=== PATIENT | female | born 1980 | race Caucasian/White ===

== ENCOUNTER 2022-09-12 17:26 | Emergency (ER) | payer SELFPAY ==
[~2022-09-12] VITALS: Ht 167 cm; Wt 65.0 kg
--- NOTE | 2022-09-12 17:38 | ED Psychosocial ---
General Chief Complaint: Psych/Social Disorder Stated Complaint: ANXIETY Nursing Triage Note: PT ARRIVES TO ER VIA EMS. PT REPORTS RAN OUT OF HER EFFEXOR THIS PAST SUNDAY, RAN OUT OF HER WELLBUTRIN 3 WEEKS AGO, ALMOST OUT OF HER TRAZODONE. PT C/O CRYING, ANXIETY, AND PANIC ATTACKS SINCS SUNDAY. PT HAS AN APPT WITH A NEW PCP NEXT SUN. Source: patient Exam Limitations: no limitations History of Present Illness Date Seen by Provider: September 12, 2022 Time Seen by Provider: 17:25 Initial Comments 42-year-old female presents to the ED via EMS for panic attack. She states that she recently moved back here, and has been out of her Effexor and Wellbutrin. She does not have as needed medications for anxiety. She reports midsternal chest pain that started yesterday morning, states it has been constant since it started. Also reports occasional shortness of air. Reports the symptoms are usual for her panic attacks. Denies fevers, abdominal pain, diarrhea, vomiting. Does report some nausea. Patient denies any suicidal or homicidal ideation. Allergies and Home Medications Allergies Coded Allergies: No Known Drug Allergies (Unverified , 09/12/22) Patient Home Medication List Home Medication List Reviewed: Yes Bupropion HCl (Wellbutrin Xl) 150 Mg Tab.er.24h, 150 MG PO DAILY Prescribed by: Jeanne Blackburn on 09/12/221929 Trazodone HCl (Trazodone HCl) 50 Mg Tablet, 50 MG PO HS Prescribed by: Jeanne Blackburn on 09/12/221929 Venlafaxine HCl (Effexor Xr) 150 Mg Cap.er.24h, 150 MG PO DAILY Prescribed by: Jeanne Blackburn on 09/12/221929 Review of Systems Constitutional: see HPI Past Rxpjlzr-Vglydj-Kmwhwy Hx Patient Social History Tobacco Use?: Yes Tobacco type used: Cigarettes Smoking Status: Current Everyday Smoker Use of E-Cig and/or Vaping dev: No Substance use?: Yes Substance type: Marijuana Alcohol Use?: No Pt feels they are or have been: No Immunizations Up To Date First/Initial COVID19 Vaccinat: RECEIVED, UNK WHEN Second COVID19 Vaccination Solitario: RECEIVED, UNK WHEN COVID19 Vaccine Agricultural Inspector: MEKA Physical Exam Vital Signs - First Documented 09/12/22 17:26 Temp 35.0 Pulse 86 Resp 18 B/P (MAP) 142/91 (108) Pulse Ox 98 O2 Delivery Room Air Capillary Refill : Height, Weight, BMI Height: '" Weight: lbs. oz. kg; 23.00 BMI Method: General Appearance: WD/WN, mild distress Neck: supple, normal inspection Respiratory: lungs clear, normal breath sounds, no respiratory distress, no accessory muscle use Cardiovascular: regular rate, rhythm Extremities: normal range of motion, normal inspection Neurologic/Psychiatric: alert, normal mood/affect Skin: normal color, warm/dry Progress/Results/Core Measures Results/Orders Lab Results Laboratory Tests Test 09/12/22 18:01 Range/Units White Blood Count 10.9 4.3-11.0 10^3/uL Red Blood Count 5.01 3.80-5.11 10^6/uL Hemoglobin 15.2 11.5-16.0 g/dL Hematocrit 45 35-52 % Mean Corpuscular Volume 91 80-99 fL Mean Corpuscular Hemoglobin 30 25-34 pg Mean Corpuscular Hemoglobin Concent 34 32-36 g/dL Red Cell Distribution Width 12.8 10.0-14.5 % Platelet Count 322 130-400 10^3/uL Mean Platelet Volume 9.5 9.0-12.2 fL Immature Granulocyte % (Auto) 1 % Neutrophils (%) (Auto) 63 42-75 % Lymphocytes (%) (Auto) 28 12-44 % Monocytes (%) (Auto) 6 0-12 % Eosinophils (%) (Auto) 1 0-10 % Basophils (%) (Auto) 1 0-10 % Neutrophils # (Auto) 6.9 1.8-7.8 10^3/uL Lymphocytes # (Auto) 3.0 1.0-4.0 10^3/uL Monocytes # (Auto) 0.7 0.0-1.0 10^3/uL Eosinophils # (Auto) 0.1 0.0-0.3 10^3/uL Basophils # (Auto) 0.1 0.0-0.1 10^3/uL Immature Granulocyte # (Auto) 0.1 0.0-0.1 10^3/uL Prothrombin Time 11.7 L 12.2-14.7 SEC INR Comment 0.8 0.8-1.4 Activated Partial Thromboplast Time 30 24-35 SEC Sodium Level 140 135-145 MMOL/L Potassium Level 4.0 3.6-5.0 MMOL/L Chloride Level 106 98-107 MMOL/L Carbon Dioxide Level 21 21-32 MMOL/L Anion Gap 13 5-14 MMOL/L Blood Urea Nitrogen 12 7-18 MG/DL Creatinine 0.76 0.60-1.30 MG/DL Estimat Glomerular Filtration Rate 99 BUN/Creatinine Ratio 16 Glucose Level 101 70-105 MG/DL Calcium Level 10.1 8.5-10.1 MG/DL Corrected Calcium 9.7 8.5-10.1 MG/DL Magnesium Level 1.9 1.6-2.4 MG/DL Total Bilirubin 0.4 0.1-1.0 MG/DL Aspartate Amino Transf (AST/SGOT) 21 5-34 U/L Alanine Aminotransferase (ALT/SGPT) 21 0-55 U/L Alkaline Phosphatase 88 40-136 U/L Troponin I < 0.028 <0.028 NG/ML Total Protein 8.2 6.4-8.2 GM/DL Albumin 4.5 3.2-4.5 GM/DL My Orders Orders - JEANNE BLACKBURN GREEN MARKETER Cbc With Automated Diff (09/12/22 17:33) Magnesium (09/12/22 17:33) Chest 1 View, Ap/Pa Only (09/12/22 17:33) Ekg Tracing (09/12/22 17:33) Comprehensive Metabolic Panel (09/12/22 17:33) Protime With Inr (09/12/22 17:33) Partial Thromboplastin Time (09/12/22 17:33) Ed Iv/Invasive Line Start (09/12/22 17:33) Troponin I [place] (09/12/22 17:33) Lorazepam Tablet (Ativan Tablet) (09/12/22 17:45) Medications Given in ED Current Medications Medications Dose Ordered Sig/Leslie Route Start Time Stop Time Status Last Admin Dose Admin Lorazepam 0.5 mg ONCE ONCE PO 09/12/22 17:45 09/12/22 17:46 DC 09/12/22 17:40 0.5 MG Vital Signs/I&O 09/12/22 17:26 Temp 35.0 Pulse 86 Resp 18 B/P (MAP) 142/91 (108) Pulse Ox 98 O2 Delivery Room Air Blood Pressure Mean: 108 Progress Progress Note : Progress Note Patient seen and evaluated, sitting on bed, moderately anxious. Based on exam and symptoms, work-up initiated including CBC, CMP, magnesium, troponin, EKG, chest x-ray, coags. Oral Ativan ordered. Initial ECG Impression Date: September 12, 2022 Initial ECG Impression Time: 17:49 Initial ECG Rate: 76 Initial ECG Rhythm: Normal Sinus Initial ECG Intervals: Normal Initial ECG Impression: Normal Initial ECG Comparisson: No Previous ECG Available Departure Impression Primary Impression: Anxiety Disposition: HOME, SELF-CARE Condition: Stable Departure-Patient Inst. Decision time for Depature: 19:21 Referrals: NO,LOCAL PHYSICIAN (PCP/Family) Primary Care Physician Patient Instructions: Anxiety, Adult (DC) Add. Discharge Instructions: Follow-up with [facility] as scheduled next week. You may go to the [facility] walk-in clinic if you need assistance prior to your appointment. Return for any suicidal or homicidal thoughts, or any other new, concerning, or worsening symptoms. All discharge instructions reviewed with patient and/or family. Voiced understanding. Scripts Trazodone HCl (Trazodone HCl) 50 Mg Tablet 50 MG PO HS for 30 Days, #30 TAB 0 Refills Prov: JEANNE BLACKBURN APRN 09/12/22 Bupropion HCl (Wellbutrin Xl) 150 Mg Tab.er.24h 150 MG PO DAILY for 30 Days, #30 TAB 0 Refills Prov: JEANNE BLACKBURN APRN 09/12/22 Venlafaxine HCl (Effexor Xr) 150 Mg Cap.er.24h 150 MG PO DAILY for 30 Days, #30 CAP 0 Refills Prov: JEANNE BLACKBURN APRN 09/12/22 JEANNE BLACKBURN APRN September 12, 2022 17:38
[2022-09-12] MEDS ORDERED: LORazepam 0.5 MG (ATIVAN) TABLET PO ONE (17:45)
[2022-09-12 18:09] LABS: BASOPHILS # (AUTO) 0.1 10^3/uL (0.0-0.1); BASOPHILS % (AUTO) 1 % (0-10); EOSINOPHILS # (AUTO) 0.1 10^3/uL (0.0-0.3); EOSINOPHILS % (AUTO) 1 % (0-10); HEMATOCRIT 45 % (35-52); HEMOGLOBIN 15.2 g/dL (11.5-16.0); LYMPHOCYTES % (AUTO) 28 % (12-44); MEAN CORPUSCULAR HEMOGLOBIN 30 pg (25-34); MEAN CORPUSCULAR HGB CONC 34 g/dL (32-36); MEAN CORPUSCULAR VOLUME 91 fL (80-99); MEAN PLATELET VOLUME 9.5 fL (9.0-12.2); MONOCYTES # (AUTO) 0.7 10^3/uL (0.0-1.0); MONOCYTES % (AUTO) 6 % (0-12); NEUTROPHILS # (AUTO) 6.9 10^3/uL (1.8-7.8); NEUTROPHILS % (AUTO) 63 % (42-75); PLATELET COUNT 322 10^3/uL (130-400); WHITE BLOOD COUNT 10.9 10^3/uL (4.3-11.0)
[2022-09-12 18:20] LABS: ALBUMIN 4.5 GM/DL (3.2-4.5); INR 0.8 (0.8-1.4); PROTHROMBIN TIME PATIENT 11.7 SEC (12.2-14.7)
[2022-09-12 18:22] LABS: CALCIUM 10.1 MG/DL (8.5-10.1)
[2022-09-12 18:23] LABS: TOTAL PROTEIN 8.2 GM/DL (6.4-8.2)
[2022-09-12 18:25] LABS: BILIRUBIN,TOTAL 0.4 MG/DL (0.1-1.0)
[2022-09-12 18:27] LABS: CREATININE SERUM 0.76 MG/DL (0.60-1.30)
[2022-09-12 18:30] LABS: MAGNESIUM 1.9 MG/DL (1.6-2.4)
--- NOTE | 2022-09-12 19:16 | Diagnostic Imaging Report ---
EXAMINATION: Chest 1 view HISTORY: Chest pain. COMPARISON: None available. FINDINGS: The lung volumes are normal. No focal consolidation is seen. No large pleural effusion or pneumothorax is seen. The cardiomediastinal silhouette is normal in size and contour. No acute osseous abnormality is seen. IMPRESSION: 1. No acute pleuroparenchymal process. Dictated by: Dictated on workstation # [id number]
[2022-09-12] MEDS ORDERED: VENL150C3 PO (19:30)
[2022-09-12] MEDS ORDERED: BUPR-42 PO (19:30)
[2022-09-12] MEDS ORDERED: TRZ50T PO (19:30)
[2022-09-12 19:38] VITALS: BP 131/87
== END 2022-09-12 19:39 | disposition home or self-care (01) ==
LOC: EDUNIT# 17:26 → ER 17:27
DX: F41.9 Anxiety disorder, unspecified (principal); F17.210 Nicotine dependence, cigarettes, uncomplicated; Z79.899 Other long term (current) drug therapy
CPT/HCPCS: 36415; 71045; 80053; 83735; 84484; 85025; 85610; 85730; 93005

== ENCOUNTER 2022-09-26 14:16 | Emergency (ER) | payer SELFPAY ==
[~2022-09-26] VITALS: Ht 167.7 cm; Wt 66.0 kg
[~2022-09-26 14:16] MED LIST: BUPR-42 PO; TRZ50T PO; VENL150C3 PO
[2022-09-26] MEDS ORDERED: CYCL10TA25 PO (14:52)
[2022-09-26] MEDS ORDERED: KETO10TA PO (14:52)
--- NOTE | 2022-09-26 14:52 | ED Back Pain ---
General Chief Complaint: Back Problems Stated Complaint: BACK PAIN Nursing Triage Note: PT AMB TO ED BY POV WITH C/O NECK AND BACK PAIN. PT REPORTS LOWER NECK, MID BACK, AND LOWER BACK PAIN X 4 DAYS, DENIES INJURY. Source of Information: Patient Exam Limitations: No Limitations History of Present Illness Date Seen by Provider: September 26, 2022 Time Seen by Provider: 14:48 Initial Comments Patient is a 42-year-old female who presents to the ED for neck pain, middle lower back pain. Pain started 4 days ago. Described as a dull burning pain. Worse with movement or while sitting. She states she recently started doing abdominal exercises which may be contributing to her pain. She denies any falls. Pain radiates outward from the mid to lower back. She states she had a episode of pain shooting down the left leg. She denies of any bowel or urine incontinence, saddle paresthesia, lower extremity weakness. Family history of degenerative disc disease. She denies history of osteoporosis, drug use, fever, chills, abdominal pain, chest pain, shortness of breath or cough. She has been taken ibuprofen without much improvement. She is requesting something for pain. She states she feels a knot to her mid back. Patient denies dysuria, hematuria, vaginal bleeding, vaginal discharge Allergies and Home Medications Allergies Coded Allergies: No Known Drug Allergies (Unverified , 09/12/22) Patient Home Medication List Home Medication List Reviewed: Yes Bupropion HCl (Wellbutrin Xl) 150 Mg Tab.er.24h, 150 MG PO DAILY Prescribed by: Jeanne Blackburn on 09/12/221929 Cyclobenzaprine HCl (Cyclobenzaprine HCl) 10 Mg Tablet, 10 MG PO TID Prescribed by: ROSENDO CUVEAS on 09/26/22 145 Ketorolac Tromethamine (Ketorolac Tromethamine) 10 Mg Tablet, 10 MG PO TID Prescribed by: ROSENDO CUEVAS on 09/26/22 145 Trazodone HCl (Trazodone HCl) 50 Mg Tablet, 50 MG PO HS Prescribed by: Jeanne Blackburn on 09/12/221929 Venlafaxine HCl (Effexor Xr) 150 Mg Cap.er.24h, 150 MG PO DAILY Prescribed by: Jeanne Blackburn on 09/12/221929 Review of Systems Constitutional: No chills, No diaphoresis, No malaise, No weakness EENTM: No hearing loss, No blurred vision, No double vision Respiratory: No cough, No dyspnea on exertion Cardiovascular: No chest pain Gastrointestinal: No abdominal pain, No nausea, No vomiting Genitourinary: No decreased output, No discharge Musculoskeletal: back pain, joint pain, muscle pain, muscle stiffness Skin: No change in color, No change in hair/nails All Other Systems Reviewed Negative Unless Noted: Yes Past Xhmlpzm-Lbndwx-Ktncck Hx Patient Social History Tobacco Use?: Yes Tobacco type used: Cigarettes Smoking Status: Current Everyday Smoker Use of E-Cig and/or Vaping dev: No Substance use?: Yes Substance type: Marijuana Substance frequency: Couple times a week Alcohol Use?: No Pt feels they are or have been: No Immunizations Up To Date Influenza Vaccine Up-to-Date: No; Not Current First/Initial COVID19 Vaccinat: X2 Second COVID19 Vaccination Solitario: X2 Past Medical History Surgery/Hospitalization HX: ANXIETY, DEPRESSION, RA Physical Exam Vital Signs Vital Signs - First Documented 09/26/22 14:30 Temp 37.0 Pulse 70 Resp 16 B/P (MAP) 116/75 (89) Pulse Ox 98 O2 Delivery Room Air Capillary Refill : Less Than 3 Seconds Height, Weight, BMI Height: '" Weight: lbs. oz. kg; 23.00 BMI Method: General Appearance: No Apparent Distress, WD/WN HEENT: PERRL/EOMI, TMs Normal, Normal ENT Inspection, Pharynx Normal Neck: Full Range of Motion, Normal Inspection, Non Tender, Supple Cardiovascular: Regular Rate, Rhythm, No Edema, No Gallop, No JVD, No Murmur Respiratory: Chest Non Tender, Lungs Clear, Normal Breath Sounds, No Accessory Muscle Use, No Respiratory Distress Gastrointestinal: Normal Bowel Sounds, No Organomegaly, No Pulsatile Mass, Non Tender, Soft Back: Vertebral Tenderness (Thoracic midline tenderness, bilateral thoracic paraspinal muscle tenderness, no swelling, erythema or ecchymosis. Lumbar midline tenderness, bilateral lumbar paraspinal muscle tenderness. Pain with flexion and extension. Pain with rotational movements.) Extremity: Normal Capillary Refill, Normal Inspection, Normal Range of Motion, Non Tender Neurologic/Psychiatric: Alert, Oriented x3 Skin: Normal Color, Warm/Dry Progress/Results/Core Measures Results/Orders My Orders Orders - JASON WOO Ketorolac Injection (Toradol Injection) (09/26/22 15:00) Orphenadrine Inj (Ed Only) (Norflex Inje (09/26/22 15:00) Medications Given in ED Current Medications Medications Dose Ordered Sig/Leslie Route Start Time Stop Time Status Last Admin Dose Admin Ketorolac Tromethamine 30 mg ONCE ONCE IM 09/26/22 15:00 09/26/22 15:01 09/26/22 14:53 30 MG Orphenadrine Citrate 60 mg ONCE ONCE IM 09/26/22 15:00 09/26/22 15:01 09/26/22 14:53 60 MG Vital Signs/I&O 09/26/22 14:30 Temp 37.0 Pulse 70 Resp 16 B/P (MAP) 116/75 (89) Pulse Ox 98 O2 Delivery Room Air Blood Pressure Mean: 89 Departure Communication (PCP) Reviewed previous ER visits, H&P, lab testing. Patient with diffuse back pain after doing abdominal x-rays. No falls, fever, drug use or history of osteoporosis. No neurological red flag findings such as bowel or urine incontinence, saddle paresthesia, lower extremity weakness. She did have some sharp shooting pain down the left leg but that has resolved. Suspect mu sculoskeletal versus degenerative disc disease versus bulging disc. No emergent findings suggesting emergent imaging at this time. Did offer x-ray but she would rather wait. Recommend anti-inflammatories, muscle relaxer which was provided here. Recommend stretching and rest and formal PT. Outpatient follow- up your PCP for further evaluation. Return precaution were discussed. Impression Primary Impression: Back strain Disposition: 01 HOME, SELF-CARE Condition: Stable Departure-Patient Inst. Decision time for Depature: 14:51 Referrals: [facility] [place],LOCAL PHYSICIAN (PCP) Primary Care Physician Patient Instructions: Back Muscle Strain (DC) Add. Discharge Instructions: Recommend pain medication, muscle relaxers. Recommend rest for the next week. Recommend formal PT. Follow-up with PCP for further evaluation. If any worsening pain to return back to ED. Avoid abdominal stretching till pain improves All discharge instructions reviewed with patient and/or family. Voiced understanding. Scripts Cyclobenzaprine HCl (Cyclobenzaprine HCl) 10 Mg Tablet 10 MG PO TID, #15 TAB Prov: JASON WOO 09/26/22 Ketorolac Tromethamine (Ketorolac Tromethamine) 10 Mg Tablet 10 MG PO TID, #15 TAB Prov: JASON WOO 09/26/22 JASON WOO September 26, 2022 14:52
[2022-09-26] MEDS ORDERED: ORPHENADRINE 60 MG/2 ML (NORFLEX) AMP (ED ONLY) IM ONE (15:00)
[2022-09-26] MEDS ORDERED: KETOROLAC 30 MG/ML VIAL IM ONE (15:00)
[2022-09-26 15:04] VITALS: BP 116/75
== END 2022-09-26 15:06 | disposition home or self-care (01) ==
LOC: EDUNIT# 14:16 → ER 14:20
DX: S29.012A Strain of muscle and tendon of back wall of thorax, initial encounter (principal); S39.012A Strain of muscle, fascia and tendon of lower back, initial encounter; F17.210 Nicotine dependence, cigarettes, uncomplicated; Z82.69 Family history of other diseases of the musculoskeletal system and connective tissue; X58.XXXA Exposure to other specified factors, initial encounter
CPT/HCPCS: 99284